=== PATIENT | male | born 1995 | race Caucasian/White ===

== ENCOUNTER 2020-05-22 10:24 | Emergency (ER) | payer OTHER ==
[~2020-05-22] VITALS: Ht 182.9 cm; Wt 99.8 kg
[~2020-05-22 10:24] MED LIST: NOHOMEMEDICATIONS
[2020-05-22 12:13] LABS: INFLUENZA A ANTIGEN Negative (Negative); INFLUENZA B ANTIGEN Negative (Negative)
[2020-05-22 12:50] VITALS: BP 141/86
== END 2020-05-22 12:50 | disposition home or self-care (01) ==
LOC: M.ERS 10:24
PROVIDERS: Personal Emergency Response Attendant
DX: U07.1 COVID-19 (principal)